=== PATIENT | male | born 1965 | race Caucasian/White ===

== ENCOUNTER → 2021-04-22 01:58 | Outpatient (CLI) | payer OTHER, BC, SELFPAY ==
[2021-04-22 17:54] LABS: SARS-CoV-2 RNA PCR Negative
== END ==
PROVIDERS: PCP Pediatrics; Visit Provider Internal Medicine Gastroenterology
DX: Z01.812 Encounter for preprocedural laboratory examination (principal); Z20.822 Contact with and (suspected) exposure to COVID-19
CPT/HCPCS: C9803; U0003; U0005

== ENCOUNTER 2021-04-25 01:29 | Day surgery (SDC) | payer OTHER, BC, SELFPAY ==
[2021-04-25 11:54] VITALS: BP 116/76; PULSE 77; RESP 18; TEMP 36.1; O2SAT 100
--- NOTE | 2021-04-25 11:59 | WPDGICN ---
Assessment and Plan Assessment and plan (1) Rectal bleeding: Code(s): K62.5 - Hemorrhage of anus and rectum Status: Acute Assessment and Plan: Patient presents for examination to evaluate rectal bleeding. With known history of hemorrhoids this most likely etiology. Other etiologies can also be present. Plan is for colonoscopy to evaluate more thoroughly. Additional fiber in his diet is felt helpful in the interim. Further recommendations will be given after endoscopy. GI Consult Note Consult date/time: 04/25/21 11:59 HPI: Regulo Goel is a 55 year old male Presents for colonoscopy. Patient reports over the last 3-4 months has noted 3-4 episodes of bright red blood on his toilet paper after wiping. He denies any pain. His bowel habits remain normal. The bowel habits themselves appear normal. He has noticed bright red blood on the toilet tissue paper on 3-4 occasions about 1 time a month over the last 3 months. Patient presents today for colonoscopy to evaluate this. He did have a colonoscopy about 4 years ago that showed diverticulosis and hemorrhoids. His family history is noncontributory. Review of Systems Review of Systems: All systems reviewed & are unremarkable except as noted in HPI and below PMFSH Family History Family History Mother Thyroid disease Father Dementia Grandparent Dementia Social History Social History (Updated 03/30/21 @ 15:23 by Leigh Sánchez MA) Smoking packs per day: 1 Smoking cigarettes per day: 20.0 Years smoked: 30 Smoking pack-years: 30.00 Smoking status: Current every day smoker Tobacco type: cigarettes Second hand tobacco smoke exposure: No Alcohol intake: current Drinks per week: 6 Alcohol use details: Rum Substance use: unknown Living arrangements: with family 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 Vital signs stable. HEENT exam is unremarkable. Patient is anicteric. Lungs are clear to auscultation and percussion. Heart is without murmur or extra sounds. Abdominal exam bowel sounds present soft nontender with no hepatosplenomegaly. Digital external rectal exam is normal.
--- NOTE | 2021-04-25 12:02 | WPDANESEPPF ---
Anes - Initial Pre Proc Eval Procedure: Operation Date: 04/25/21 13:00 Proposed Procedures p Colonoscopy - James Dotson MD Date/Time: 04/25/21 12:02 Surgeon: James Dotson MD Pre Op Diagnosis: rectal bleeding Patient Data Age: 55 Gender: M Height: 1.6 m Weight: 63.4 kg Last Vital Signs Temp 97.0 F L 04/25/21 11:54 Pulse 77 04/25/21 11:54 Resp 18 04/25/21 11:54 BP 116/76 04/25/21 11:54 Pulse Ox 100 04/25/21 11:54 Allergies Allergy/AdvReac Type Severity Reaction Status Date / Time No Known Allergies Allergy Verified 04/25/21 11:52 Home Medications Medication Instructions Recorded Confirmed Type thyroid (pork) 60 mg tablet 60 mg PO DAILY 03/30/21 04/07/21 History Patient hx anesthesia problems: none Family hx anesthesia problems: none Results Review: All pre-operative results and documents have been reviewed as part of the pre-operative evaluation. [facility] Past Medical History Medical History (Updated 04/25/21 @ 12:02 by Anthony Stevens MD) Hypothyroid Family History Family History Mother Thyroid disease Father Dementia Grandparent Dementia Social History Social History (Updated 03/30/21 @ 15:23 by Leigh Sánchez MA) Smoking packs per day: 1 Smoking cigarettes per day: 20.0 Years smoked: 30 Smoking pack-years: 30.00 Smoking status: Current every day smoker Tobacco type: cigarettes Second hand tobacco smoke exposure: No Alcohol intake: current Drinks per week: 6 Alcohol use details: Rum Substance use: unknown Living arrangements: with family 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 Informed Consent: The patient's anesthetic plan and its attendant risks and benefits were discussed with the patient/family/POA. Questions were solicited and answers provided to the satisfaction of the patient/family/POA.
[2021-04-25] MEDS: LACTATED RINGERS 1,000 ML 150 ML IV CONT (12:12)
[2021-04-25 13:10] VITALS: BP 105/62; PULSE 68; RESP 16; O2SAT 95
[2021-04-25 13:22] VITALS: BP 150/61; PULSE 75; RESP 18; O2SAT 97
[2021-04-25 13:30] VITALS: BP 105/71; PULSE 61; RESP 18; O2SAT 99
== END 2021-04-25 13:49 | disposition home or self-care (01) ==
PROVIDERS: PCP Pediatrics; Visit Provider Internal Medicine Gastroenterology
PROC: 0DJD8ZZ Inspection of Lower Intestinal Tract, Via Natural or Artificial Opening Endoscopic (ICD-10-PCS; CPT 45378; principal; 2021-04-25 13:00)
DX: C83.13 Mantle cell lymphoma, intra-abdominal lymph nodes (principal); K62.5 Hemorrhage of anus and rectum; K64.8 Other hemorrhoids; E03.9 Hypothyroidism, unspecified; F17.210 Nicotine dependence, cigarettes, uncomplicated
CPT/HCPCS: 45385; 88305; 88341; 88342; J2704; J7120

== ENCOUNTER 2021-05-26 13:31 | Outpatient (CLI) | payer OTHER, BC, SELFPAY ==
--- NOTE | ~2021-05-26 | PE_ITS ---
EXAMINATION: PET skull to mid thigh DATE: 05/26/2021 15:17 INDICATION: B-cell lymphoma TECHNIQUE: Blood glucose level was 93 mg/dL. 10.63 mCi of 18-fluorodeoxyglucose (18-FDG) was administ ered i.v. Low dose computed tomography (CT) images were acquired from the base of the brain to the pr oximal thighs for attenuation correction and anatomic localization. Positron emission tomography (PET ) images were acquired in the same distribution beginning 56 minutes after injection. Images includin g fused PET/CT images were reconstructed in axial, coronal, and sagittal planes. Automated exposure c ontrol technique was employed. The dose-length product was 346.85mGy-cm. COMPARISON: None FINDINGS: Head/neck: There is symmetric increased activity in the oral cavity, laryngeal muscles and ocular muscles withou t CT correlate, likely physiologic. There is also relatively symmetric increased FDG uptake at the bi lateral palatine and lingual tonsils without radiologic correlate. The degree of uptake is however gr eater than typical with maximal SUV of 5.8 on the left and 5.2 on the right. No pathologically enlarg ed cervical lymphadenopathy or suspicious foci of increased FDG uptake in the visualized head or neck . Chest: Mild emphysema. Respiratory motion and mild dependent atelectasis in the bilateral lungs. Calcified r ight upper lobe nodule along with calcified right hilar lymph nodes consistent with old granulomatous disease. Mild FDG uptake associated with a couple mildly prominent bilateral axillary lymph nodes me asuring 8 mm short axis diameter with maximal SUV of 1.9 on the right and 11 mm in short axis diamete r on the left with maximal SUV of 2.6. No pathologically enlarged or FDG avid mediastinal or hilar ly mphadenopathy. Heart size is normal. No pericardial effusion. Thoracic aorta is normal in caliber. Abdomen/pelvis/proximal thighs: There is wall thickening with circumferential prominent FDG uptake at the gastric pylorus with jay l SUV of 10.5 which could be either infectious, inflammatory or malignant in etiology. Physiologic re nal accumulation and excretion of FDG activity in the kidneys, bladder and along portions of ureters. Small nonobstructing left renal stone on the order 3-4 mm although measurement is limited by motion artifact. Normal degree and heterogenous pattern of increased uptake throughout the liver without rad iologic correlate or dominant FDG avid lesion. The gallbladder, pancreas, spleen and bilateral adrena l glands are normal. The appendix is dilated to 1.8 cm with relatively homogeneous soft tissue densit y and without periappendiceal inflammatory stranding to suggest acute appendicitis. There is prominen t increased FDG uptake throughout the appendix and extending to the appendiceal orifice at the cecum with maximal SUV of 9.1. There is otherwise mild/moderate FDG uptake without radiologic correlate sca ttered throughout the remainder of the bowels. Bladder is normal. No other abnormal foci of increased FDG uptake or pathologically enlarged or FDG avid lymphadenopathy in the abdomen, pelvis or proximal thighs. Musculoskeletal: No suspicious lytic, blastic or FDG avid bone lesions. IMPRESSION: 1. Wall thickening and marked FDG uptake at the gastric pylorus which could be due to gastritis with infectious, inflammatory bowel disease or peptic ulcer disease as potential etiologies or malignancy either primary, metastatic disease or lymphoma. 2. Enlarged solid appearing and markedly FDG avid appendix without surrounding inflammatory stranding to suggest acute appendicitis which is also most concerning for malignancy which could be due to lym phoma or other primary or metastatic disease including carcinoid or appendiceal mucocele. 3. Mild FDG uptake associated with a couple mildly prominent bilateral axillary lymph nodes which cou ld be either reactive, metastatic disease or
[2021-05-26 13:56] LABS: Glucose Point of Care 93 mg/dl (65-105)
== END 2021-05-26 13:32 | disposition home or self-care (01) ==
LOC: ANHIMG 13:38
PROVIDERS: PCP Pediatrics; Visit Provider Internal Medicine Hematology & Oncology
DX: C85.10 Unspecified B-cell lymphoma, unspecified site (principal); R93.5 Abnormal findings on diagnostic imaging of other abdominal regions, including retroperitoneum
CPT/HCPCS: 78815; A9552

== ENCOUNTER 2021-05-31 15:33 | Outpatient (CLI) | payer OTHER, BC, SELFPAY ==
[2021-05-31 15:50] LABS: Basophils Absolute Auto 0.1 K/mm3 (0.0-0.1); Basophils Percent Auto 0.9 % (0.2-1.2); Eosinophils Absolute Auto 0.2 K/mm3 (0-0.3); Eosinophils Percent Auto 2.3 % (0-4.4); Hematocrit 43.2 % (42.0-52.0); Hemoglobin 14.2 g/dL (14.0-18.0); Immature Granulocyte Absolute 0.03 K/mm3 (0.00-0.031); Immature Granulocyte Percent A 0.3 % (0-0.5); Lymphocytes Absolute Auto 1.89 K/mm3 (0.9-3.2); Lymphocytes Percent Auto 20.5 % (18.3-44.2); Mean Corpuscular HGB Conc 32.9 g/dl (32-36); Mean Corpuscular Hemoglobin 31.4 pg (26-34); Mean Corpuscular Volume 95.6 fl (80-100); Mean Platelet Volume 8.7 fl (7.4-10.4); Monocytes Absolute Auto 0.6 K/mm3 (0.1-0.6); Monocytes Percent Auto 6.5 % (2.6-8.5); Neutrophils Absolute Auto 6.4 K/mm3 (1.3-6.7); Neutrophils Percent Auto 69.5 % (45.5-73.1); Platelet Count Result 227 k/mm3 (150-375); Red Blood Count 4.52 M/mm3 (4.6-6.20); Red Cell Distribution Width 13.1 % (11.5-14.5); White Blood Count 9.2 K/mm3 (4.5-10.0)
[2021-05-31 16:20] LABS: Alanine Aminotransferase 21 U/L (4-50); Albumin Level 4.6 g/dL (3.5-5.1); Alkaline Phosphatase 91 U/L (38-126); Anion Gap 10 mmol/L (8-16); Aspartate Amino Transferase 39 U/L (17-59); Bilirubin,Total 0.4 mg/dL (0.2-1.3); Blood Urea Nitrogen 14 mg/dL (9-20); Calcium 9.3 mg/dL (8.4-10.2); Carbon Dioxide 26 mmol/L (22-30); Chloride 103 mmol/L (98-107); Estimated Glomerular Filt Rate > 60; Glucose 115 mg/dL (65-110); Lactate Dehydrogenase 342 U/L (313-618); Potassium 3.8 mmol/L (3.4-5.0); Sodium 139 mmol/L (137-145)
== END 2021-05-31 15:34 | disposition home or self-care (01) ==
LOC: ANHLAB 15:34
PROVIDERS: Visit Provider Internal Medicine Hematology & Oncology
DX: C85.10 Unspecified B-cell lymphoma, unspecified site (principal)
CPT/HCPCS: 36415; 80053; 83615; 85025; 88184

== ENCOUNTER → 2021-06-04 00:20 | Outpatient (CLI) | payer OTHER, BC, SELFPAY ==
[2021-06-04 15:13] LABS: SARS-CoV-2 RNA PCR Negative
== END ==
PROVIDERS: PCP Nurse Practitioner Family; Visit Provider Internal Medicine Gastroenterology
DX: Z01.812 Encounter for preprocedural laboratory examination (principal); Z20.822 Contact with and (suspected) exposure to COVID-19
CPT/HCPCS: C9803; U0003; U0005

== ENCOUNTER 2021-06-07 00:45 | Day surgery (SDC) | payer OTHER, BC, SELFPAY ==
[2021-06-03 11:34] VITALS: BMI 24.8
[2021-06-07 08:39] VITALS: BP 109/72; PULSE 89; RESP 16; TEMP 36.6; O2SAT 100
[2021-06-07] MEDS: LACTATED RINGERS 1,000 ML 150 ML IV CONT (08:48)
--- NOTE | 2021-06-07 08:51 | P.PNAN_ITS ---
Anes - Initial Pre Proc Eval Procedure: Operation Date: 06/07/21 10:00 Proposed Procedures p Esophagogastroduodenoscopy - James Dotson MD Date/Time: 06/07/21 08:51 Surgeon: James Dotson MD Pre Op Diagnosis: abnormal PET scan, gastric thickening Patient Data Age: 55 Gender: M Height: 1.6 m Weight: 62 kg Last Vital Signs Temp 36.6 C 06/07/21 08:39 Pulse 89 06/07/21 08:39 Resp 16 06/07/21 08:39 BP 109/72 06/07/21 08:39 Pulse Ox 100 06/07/21 08:39 Allergies Allergy/AdvReac Type Severity Reaction Status Date / Time No Known Allergies Allergy Verified 06/07/21 08:38 Home Medications Medication Instructions Recorded Confirmed Type thyroid (pork) 60 mg tablet 60 mg PO DAILY 03/30/21 06/07/21 History Patient hx anesthesia problems: none Family hx anesthesia problems: none Results Review: All pre-operative results and documents have been reviewed as part of the pre-operative evaluation. [facility] Past Medical History Medical History Hypothyroid Smoker within last 12 months (Unknown) Surgical History Surgical History (Updated 06/07/21 @ 08:54 by Cirilo Angela MD) H/O colonoscopy H/O wrist surgery ORIF with hardware Family History Family History Mother Thyroid disease Father Dementia Grandparent Dementia Social History Social History Smoking packs per day: 1 Smoking cigarettes per day: 20.0 Years smoked: 30 Smoking pack-years: 30.00 Smoking status: Current every day smoker Tobacco type: cigarettes Second hand tobacco smoke exposure: No Alcohol intake: current Drinks per week: 6 Alcohol use details: Rum Substance use: never Substance use type: does not use Living arrangements: with family Additional occupation/education comments: [employer] Gender identity (if verbalized by the patient): Male Spiritual care concerns: No Agree to blood products: Yes Anes - Eval Final PreProcedure Day of Procedure 06/07/21 08:51 Patient weight: normal Heart: regular rate and rhythm Lungs: clear to auscultation Airway: Mallampati scale class II Neurological: alert and oriented Last oral intake: >/= 8 hours ASA classification: II Emergent: no Anesthetic plan: proceed Anesthesia type and monitoring: general GIVS and standard monitoring Results Review: All pre-operative results and documents have been reviewed as part of the pre-operative evaluation. Informed Consent: The patient's anesthetic plan and its attendant risks and benefits were discussed with the patient/family/POA. Questions were solicited and answers provided to the satisfaction of the patient/family/POA.
--- NOTE | 2021-06-07 09:19 | P.CONGI_ITS ---
Assessment and Plan Assessment and plan (1) Mantle cell lymphoma: Onset Date: ~04/2021 Code(s): C83.10 - Mantle cell lymphoma, unspecified site Status: Acute Assessment and Plan: Patient recently found to have mantle cell lymphoma multiple spots within the colon. Currently under evaluation by Oncology for potential treatment. (2) Abnormal positron emission tomography (PET) scan: Code(s): R94.8 - Abnormal results of function studies of other organs and systems Status: Acute Assessment and Plan: PET scan suggest abnormal uptake in the gastric pylorus. For this reason EGD will be performed. Appearance of diff few scattered areas consistent with his known lymphoma or also identified. GI Consult Note Consult date/time: 06/07/21 09:19 HPI: Regulo Goel is a 55 year old male Presents for EGD. Patient recently had small amount of bright red blood per rectum. Subsequent colonoscopy 1 month ago revealed multiple polyps histology consistent with a mantle cell lymphoma. Patient has now been seen by Oncology. A PET scan reveals uptake in the gastric pylorus for this reason an EGD is advised. PET scan also has uptake around the appendix and several other locations. an EGD is anticipated today. Patient currently has no symptoms and feels asymptomatic Review of Systems Review of Systems: All systems reviewed & are unremarkable except as noted in HPI and below PMFSH Past Medical History Medical History Hypothyroid Smoker within last 12 months (Unknown) Surgical History Surgical History (Updated 06/07/21 @ 08:54 by Cirilo Angela MD) H/O colonoscopy H/O wrist surgery ORIF with hardware Family History Family History Mother Thyroid disease Father Dementia Grandparent Dementia Social History Social History Smoking packs per day: 1 Smoking cigarettes per day: 20.0 Years smoked: 30 Smoking pack-years: 30.00 Smoking status: Current every day smoker Tobacco type: cigarettes Second hand tobacco smoke exposure: No Alcohol intake: current Drinks per week: 6 Alcohol use details: Rum Substance use: never Substance use type: does not use Living arrangements: with family 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 Vital signs stable. HEENT exam is unremarkable. Patient is anicteric. Lungs are clear to auscultation and percussion. Heart is without murmur or extra sounds. Abdominal exam bowel sounds present soft nontender with no organomegal
[2021-06-07] MEDS: BENZOCAINE (*SP) 60 ML SPRAY CAN (HURRICAINE) 1 SPRAY MUCOUS MEM (10:03)
[2021-06-07] MEDS: SIMETHICONE ORAL SUSPENSION 20 MG/0.3 ML 30 ML BOTTLE 0.6 ML IRRIGATION (10:06)
[2021-06-07 10:15] VITALS: BP 103/68; PULSE 78; RESP 24; O2SAT 100
[2021-06-07 10:25] VITALS: BP 110/87; PULSE 78; RESP 20; O2SAT 100
[2021-06-07 10:35] VITALS: BP 103/71; PULSE 62; RESP 20; O2SAT 100
== END 2021-06-07 10:51 | disposition home or self-care (01) ==
PROVIDERS: PCP Pediatrics; Referring Provider Internal Medicine Hematology & Oncology; Visit Provider Internal Medicine Gastroenterology
PROC: 0DJ08ZZ Inspection of Upper Intestinal Tract, Via Natural or Artificial Opening Endoscopic (ICD-10-PCS; CPT 43235; principal; 2021-06-07 10:00)
DX: C83.13 Mantle cell lymphoma, intra-abdominal lymph nodes (principal); E03.9 Hypothyroidism, unspecified; F17.210 Nicotine dependence, cigarettes, uncomplicated
CPT/HCPCS: 43239; 88305; 88341; 88342; J2704; J7120

== ENCOUNTER 2022-08-17 07:41 | Outpatient (CLI) | payer BC, SELFPAY ==
--- NOTE | ~2022-08-17 | PE_ITS ---
EXAMINATION: PET skull to mid thigh DATE: 08/17/2022 12:39 INDICATION: Mantle cell lymphoma. TECHNIQUE: Blood glucose level was 96 mg/dL. 10.089 mCi of 18-fluorodeoxyglucose (18-FDG) was adminis tered i.v. Low dose computed tomography (CT) images were acquired from the base of the brain to the p roximal thighs for attenuation correction and anatomic localization. Automated exposure control was e mployed. Dose-length product (DLP) was 481 mGy-cm. Positron emission tomography (PET) images were acq uired in the same distribution. COMPARISON: PET/CT 05/26/2021 FINDINGS: Head/neck: There is enlargement of the palatine and lingual tonsils with increased activity. There is soft tissue thickening in the nasopharynx with maximum SUV of 7.6. There is increased activity in no rmal-sized parotid lymph nodes and a right internal jugular chain lymph node. There is increased acti vity in a mildly enlarged left internal jugular chain lymph node. Chest: There is mild emphysema. A calcified right lung nodule and calcified right hilar and mediastin al lymph nodes are consistent with old granulomatous disease. No pleural effusion. The heart size is normal. No pericardial effusion. The heart size is normal. No pericardial effusion. Normal mediastin um maximum SUV is 2.8. There is increased activity in normal-sized mediastinal, bilateral hilar, left internal mammary, and right axillary lymph nodes. There is increased activity in left axillary lymph nodes, one of which is mildly enlarged. Abdomen/pelvis/proximal thighs: Normal liver maximum SUV is 2.6. The liver, gallbladder, and spleen a re normal. There is wall thickening in the distal stomach and proximal duodenum with maximum SUV of 1 4.6. The pancreas, adrenal glands, and right kidney are normal. There is a 1 mm stone in left kidney. The appendix is enlarged to 2.1 cm with maximum SUV of 13.2. There is no free intraperitoneal fluid. There is increased activity in normal-sized aortocaval, left para-aortic, bilateral internal iliac, bilateral external iliac, and bilateral inguinal lymph nodes. There is increased activity in enlarged mesenteric lymph nodes. For example, a confluence of lymph nodes on the left measures 3.6 x 3.1 cm w ith maximum SUV of 7.8. There is wall thickening of the rectum with maximum SUV of 14.4. There is no osseous malignancy. IMPRESSION: 1. Worsened distribution of lymphadenopathy with increased activity in the neck, chest, abdomen, and pelvis, consistent with lymphoma. 2. Worsened soft tissue thickening and increased activity in Waldeyer ring, consistent with lymphoma. 3. Worsened wall thickening with increased activity involving the distal stomach and proximal duodenu m, consistent with lymphoma. 4. Worsened enlargement and increased activity in the appendix, consistent with lymphoma. 5. Worsened wall thickening and increased activity in the rectum, consistent with lymphoma. Reviewed, dictated and finalized at location A. IMPRESSION: 1. Worsened distribution of lymphadenopathy with increased activity in the neck , chest, abdomen, and pelvis, consistent with lymphoma. 2. Worsened soft tissue thickening and increased activity in Waldeyer ring, con sistent with lymphoma. 3. Worsened wall thickening with increased activity involving the distal stomac h and proximal duodenum, consistent with lymphoma. 4. Worsened enlargement and increased activity in the appendix, consistent with lymphoma. 5. Worsened wall thickening and increased activity in the rectum, consistent wi th lymphoma.
[2022-08-17 08:04] LABS: Glucose Point of Care 96 mg/dl (65-105)
== END 2022-08-17 07:42 | disposition home or self-care (01) ==
PROVIDERS: PCP Pediatrics; Visit Provider Pediatrics
DX: C83.10 Mantle cell lymphoma, unspecified site (principal); E03.9 Hypothyroidism, unspecified; L29.9 Pruritus, unspecified
CPT/HCPCS: 78815; A9552